=== PATIENT | male | born 1965 | race Caucasian/White ===

== ENCOUNTER 2017-07-22 18:09 | Emergency (ER) | payer MEDICAID ==
[~2017-07-22] VITALS: Ht 177.8 cm; Wt 124.0 kg
[2017-07-22 18:31] VITALS: Ht 177.8 cm; Wt 124.0 kg
[2017-07-22] MEDS ORDERED: LORA1TAB54 PO (19:39)
--- NOTE | 2017-07-22 19:54 | ERD ---
ER Documentation Chief Complaint Chief Complaint Pt reports r ear pain after flying today HPI This is a 51-year-old male presenting to the emergency department complaining of clogged right ear since he was flying on an airplane today. Patient states that the physical maneuvers have not helped him. He denies any pain, fevers, discharge in the ears. He denies taking any medications for this ROS All systems reviewed and are negative except as per history of present illness. Medications Home Meds Active Scripts Loratadine/Pseudoephedrine* (Claritin-D* 12 Hr) 5-120 Mg Tab.er.12h, 1 TAB PO Q12, #30 TAB.SA Prov:MAL ROSADO PA-C 07/22/17 Allergies Allergies: Coded Allergies: iodine (Verified Allergy, Unknown, rash, 07/22/17) PMhx/Soc History of Surgery: Yes (CHOLECYSTECTOMY, INGUINAL HERNIA) Anesthesia Reaction: No Hx Neurological Disorder: No Hx Respiratory Disorders: No Hx Cardiac Disorders: No Hx Psychiatric Problems: Yes (ANXIETY) Hx Miscellaneous Medical Probl: Yes (GASTRITIS) Hx Alcohol Use: No Hx Substance Use: No Hx Tobacco Use: No Smoking Status: Former smoker Physical Exam Vitals Vital Signs Date Time Temp Pulse Resp B/P Pulse Ox O2 Delivery O2 Flow Rate FiO2 07/22/17 18:31 98.9 100 16 138/94 98 Physical Exam Const: wdwn NO ACUTE DISTRESS Head: Atraumatic Eyes: Normal Conjunctiva ENT: Normal External Ears, Nose and Mouth. TM in the right ear has mild erythema with good cone of light Neck: Full range of motion..~ No meningismus. Resp: Clear to auscultation bilaterally Cardio: Regular rate and rhythm, no murmurs Abd: Soft, non tender, non distended. Normal bowel sounds Skin: No petechiae or rashes Back: No midline or flank tenderness Ext: No cyanosis, or edema Neur: Awake and alert Psych: Normal Mood and Affect Procedures/MDM This is a 51-year-old male presenting to the emergency department with right ear clogged likely due to eustachian tube dysfunction. It is unlikely patient has otitis media, he has no fever no pain. There is no evidence of ruptured tympanic membrane. Patient appears well and stable to be discharged home to follow-up with primary care physician and possible ENT. I have given him a prescription for Claritin-D to try and I discussed with him to return to the ER for any worsening signs or symptoms. He understands and agrees with this plan Departure Diagnosis: Primary Impression: Eustachian tube dysfunction Condition: Stable Patient Instructions: Eustachian Tube Obstruction (Child) Additional Instructions: Visite a [facility] [facility] para un EXAMEN.Regrese a estas instalaciones si no se mejora jared esperbamos o jared le dijimos. [place] toda la medicina jonny y jared se le indic. MAL ROSADO PA-C Jul 22, 2017 19:54
== END 2017-07-22 20:01 | disposition left against medical advice (07) ==
LOC: FTE 18:09
DX: H69.91 Unspecified Eustachian tube disorder, right ear (principal); Z87.891 Personal history of nicotine dependence
CPT/HCPCS: 99283